=== PATIENT | female | born 1990 | race Caucasian/White ===

== ENCOUNTER → 2020-06-22 | Emergency (ER) | payer BC ==
[~2020-06-22] VITALS: Ht 167.6 cm; Wt 68.0 kg
[~2020-06-22] MED LIST: BUPIVACAINE 0.5 % PF 150 MG/30 ML VIAL IJ ONE; BUPIVACAINE 0.5 % PF 150 MG/30 ML VIAL ONE; LIDOCAINE /MPF 1% VIAL 5 ML VIAL ONE; LIDOCAINE 1% INJ 50 ML MDV IJ ONE; TDAP [DIPH/PERTUSSIS/TET] 0.5 ML VIAL IM ONE
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
[2020-06-22 21:32] VITALS: BP 109/68
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
== END | disposition home or self-care (01) ==
LOC: ER 21:25
DX: S61.012A Laceration without foreign body of left thumb without damage to nail, initial encounter (principal); Z88.0 Allergy status to penicillin; Z60.2 Problems related to living alone; W26.0XXA Contact with knife, initial encounter; Y93.89 Activity, other specified; Y92.89 Other specified places as the place of occurrence of the external cause; Y99.8 Other external cause status
CPT/HCPCS: 12001; 90471; 90715; 99283; A6403; J3490 ×2; 99245-TC